=== PATIENT | male | born 1980 | race Caucasian/White ===

== ENCOUNTER 2021-06-13 00:05 | Emergency (ER) | payer OTHER ==
[2021-06-13] MEDS ORDERED: SUBOXONE1 MI1 SL (00:22)
[2021-06-13] MEDS ORDERED: STERAPRED DS10 MG PO (01:49)
[2021-06-13] MEDS ORDERED: GABAPENTIN100 MG PO (01:49)
[2021-06-13] MEDS ORDERED: ORPHENADRINE100 MG PO (01:49)
[2021-06-13 09:30] VITALS: BP 136/75
== END 2021-06-13 09:35 | disposition home or self-care (01) | DRG 552 ==
LOC: ED 00:05
DX: M54.41 Lumbago with sciatica, right side (principal); Z79.891 Long term (current) use of opiate analgesic

== ENCOUNTER 2021-11-29 06:39 | Emergency (ER) | payer OTHER ==
[2021-11-29] VITALS (9 sets, daily range): BP systolic 93–118; BP diastolic 47–75
[~2021-11-29] VITALS: Ht 180.3 cm; Wt 102.2 kg
[~2021-11-29 06:39] MED LIST: GABAPENTIN100 MG PO; ORPHENADRINE100 MG PO; STERAPRED DS10 MG PO; SUBOXONE1 MI1 SL
[2021-11-29 07:34] LABS: HEMATOCRIT 42.4 % (39.0-50.0); HEMOGLOBIN 13.8 g/dl (14.0-18.0); IMMATURE GRANULOCYTES 0.2 % (0.0-5.0); MEAN CORPUSCULAR HGB 28.6 pG CALC (26.0-32.0); MEAN CORPUSCULAR HGB CONC 32.5 g/dL CAL (32.0-36.0); NEUT# 3.55 thou/uL (1.82-7.42); RED BLOOD COUNT 4.82 mill/uL (4.70-6.10); RED CELL DISTRI WIDTH 12.7 % (11.5-15.5)
[2021-11-29 08:15] LABS: ALBUMIN 4.2 g/dL (3.2-5.0); ALKALINE PHOSPHATASE 69 u/l (38-126); ANION GAP 11 (6-22 (CALC)); BILIRUBIN, TOTAL 0.3 mg/dL (0.0-1.4); BUN 15 mg/dL (9-20); BUN/CREATININE RATIO 22 (12-20 (CALC)); CARBON DIOXIDE 26 mmol/l (22-30); CHLORIDE 104 mmol/l (95-108); CREATININE 0.7 mg/dL (0.7-1.3); GFR FOR AFR.AMER. > 60 ML/MIN (>=60 (CALC)); GFR OTHER RACES > 60 ML/MIN (>=60 (CALC)); POTASSIUM 4.1 mmol/l (3.5-5.1); SGOT/AST 51 u/l (17-59); SODIUM 137 mmol/l (137-146); TOTAL PROTEIN 6.7 g/dL (6.3-8.2)
== END 2021-11-29 08:55 | disposition home or self-care (01) | DRG 179 ==
LOC: ED 06:39
PROVIDERS: Family Medicine
DX: U07.1 COVID-19 (principal); R51.9 Headache, unspecified; R68.83 Chills (without fever); R53.83 Other fatigue; R09.89 Other specified symptoms and signs involving the circulatory and respiratory systems; F17.210 Nicotine dependence, cigarettes, uncomplicated